=== PATIENT | male | born 1955 | race Caucasian/White ===

== ENCOUNTER 2022-01-15 16:44 | Emergency (ER) | payer OTHER, BC ==
[~2022-01-15] VITALS: Ht 170.2 cm; Wt 115.2 kg
[2022-01-15] MEDS ORDERED: LANTUS SOL100 UNIT/1 SQ (17:16)
[2022-01-15] MEDS ORDERED: ZESTRIL2.5 MG PO (17:17)
[2022-01-15] MEDS ORDERED: LEVOTHYROXINE25 MCG PO (17:17)
[2022-01-15] MEDS ORDERED: GLUMETZA500 MG PO (17:17)
== END 2022-01-15 19:42 | disposition home or self-care (01) ==
LOC: ER 16:44
DX: S01.411A Laceration without foreign body of right cheek and temporomandibular area, initial encounter (principal); S05.11XA Contusion of eyeball and orbital tissues, right eye, initial encounter; V98.8XXA Other specified transport accidents, initial encounter; Y93.89 Activity, other specified; Y92.838 Other recreation area as the place of occurrence of the external cause; Y99.9 Unspecified external cause status